=== PATIENT | female | born 1960 | race Caucasian/White ===

== ENCOUNTER 2021-10-11 13:54 | Inpatient (IN) | payer OTHER ==
[~2021-10-11] VITALS: Ht 167.6 cm; Wt 66.8 kg
[2021-10-11] MEDS ORDERED: ACET-683 PO (14:03)
[2021-10-11 16:07] LABS: BASO % 0.2 % (0.0-1.0); EOS # 0.1 10^3/uL (0.0-0.5); EOS % 0.4 % (0.0-3.0); HEMATOCRIT 39.2 % (36.0-47.0); HEMOGLOBIN 12.5 g/dl (12.0-15.5); LYMPH # 2.4 10^3/uL (1.5-5.0); LYMPH % 17.4 % (24.0-44.0); MEAN CORPUSCULAR HEMOGLOBIN 28.8 pg (27.0-33.0); MEAN CORPUSCULAR HGB CONC 31.9 g/dl (32.0-36.5); MEAN CORPUSCULAR VOLUME 90.3 fl (80.0-96.0); MONO % 11.6 % (2.0-8.0); NEUTROPHILS # 9.8 10^3/uL (1.5-8.5); PLATELET COUNT, AUTOMATED 341 10^3/uL (150-450); RED BLOOD COUNT 4.34 10^6/uL (4.00-5.40)
[2021-10-11 16:41] LABS: ALBUMIN 3.6 GM/DL (3.2-5.2); ALT/SGPT 60 U/L (12-78); BILIRUBIN,DIRECT 0.6 MG/DL (0.0-0.2); BLOOD UREA NITROGEN 13 MG/DL (7-18); CALCIUM LEVEL 9.6 MG/DL (8.8-10.2); CARBON DIOXIDE LEVEL 24 MEQ/L (21-32); CHLORIDE LEVEL 103 MEQ/L (98-107); CREATININE FOR GFR 0.95 MG/DL (0.55-1.30); GLOMERULAR FILTRATION RATE > 60.0 (>45); GLUCOSE, FASTING 89 MG/DL (70-100); LIPASE 76 U/L (73-393); POTASSIUM SERUM 3.7 MEQ/L (3.5-5.1); SODIUM LEVEL 135 MEQ/L (136-145); TOTAL PROTEIN 7.2 GM/DL (6.4-8.2)
[2021-10-11 16:51] LABS: MONO # 1.6 10^3/uL (0.0-0.8)
[2021-10-11] MEDS ORDERED: ISOVUE-370 76% 100ML VIAL As Ordered ONE (17:17)
[2021-10-11] MEDS ORDERED: ceFAZolin SOD 1 GM in D5W MINI-BAG PLUS 50 ML IV ONE (18:10)
[2021-10-11] MEDS ORDERED: KETOROLAC 30 MG/ML 1ML VIAL IV ONE (18:30)
[2021-10-11] MEDS ORDERED: metroNIDAZOLE 500 MG in IV 1 EA IV ONE (18:30)
[2021-10-11] MEDS ORDERED: ACETAMINOPHEN TAB 650MG DOSE (2X325MG) PO PRN (20:00)
[2021-10-11] MEDS ORDERED: ONDANSETRON 4MG 2ML VIAL IV PRN (20:00)
[2021-10-11] MEDS: D5W/0.45% SODIUM CHLORIDE 1,000 ML IV SCH (20:00)
[2021-10-11] MEDS ORDERED: MORPHINE 2 MG/ML 1ML VIAL IV PRN (20:00)
[2021-10-11] MEDS ORDERED: THERTAB52 PO (20:08)
[2021-10-11] MEDS ORDERED: HOME MED LIST COMPLETE! XX SCH (20:10)
[2021-10-11 22:12] VITALS: BP 145/61
[2021-10-11] MEDS: PIPERACILLIN/TAZOBACTAM SOD 3.375 GM in D5W MINI-BAG PLUS 50 ML IV SCH (22:49)
[2021-10-12] MEDS: KETOROLAC 30 MG/ML 1ML VIAL IV PRN ×2 (00:50→09:39)
[2021-10-12 02:00] VITALS: BP 104/63
[2021-10-12] MEDS: PIPERACILLIN/TAZOBACTAM SOD 3.375 GM in D5W MINI-BAG PLUS 50 ML IV SCH ×4 (04:11→21:56)
[2021-10-12 06:00] VITALS: BP_SYST 110; BP_SYST 89; BP_DIAS 47; BP_DIAS 62
[2021-10-12 08:45] LABS: BASO % 0.3 % (0.0-1.0); EOS # 0.1 10^3/uL (0.0-0.5); EOS % 0.7 % (0.0-3.0); HEMATOCRIT 36.4 % (36.0-47.0); HEMOGLOBIN 11.9 g/dl (12.0-15.5); LYMPH # 1.7 10^3/uL (1.5-5.0); LYMPH % 14.2 % (24.0-44.0); MEAN CORPUSCULAR HEMOGLOBIN 29.5 pg (27.0-33.0); MEAN CORPUSCULAR HGB CONC 32.7 g/dl (32.0-36.5); MEAN CORPUSCULAR VOLUME 90.1 fl (80.0-96.0); MONO # 1.3 10^3/uL (0.0-0.8); MONO % 10.8 % (2.0-8.0); NEUTROPHILS # 8.9 10^3/uL (1.5-8.5); NEUTROPHILS % 73.4 % (36.0-66.0); PLATELET COUNT, AUTOMATED 333 10^3/uL (150-450); RED BLOOD COUNT 4.04 10^6/uL (4.00-5.40); WHITE BLOOD COUNT 12.1 10^3/uL (4.0-10.0)
[2021-10-12] MEDS: D5W/0.45% SODIUM CHLORIDE 1,000 ML IV SCH (09:39)
[2021-10-12 10:00] VITALS: BP 99/54
[2021-10-12 14:00] VITALS: BP 122/63
[2021-10-12 18:00] VITALS: BP 125/67
[2021-10-12 20:59] VITALS: BP 128/66
[2021-10-13 01:47] VITALS: BP 102/54
[2021-10-13] MEDS: PIPERACILLIN/TAZOBACTAM SOD 3.375 GM in D5W MINI-BAG PLUS 50 ML IV SCH ×3 (04:37→15:41)
[2021-10-13 05:40] VITALS: BP 114/62
[2021-10-13 05:54] LABS: BASO % 0.3 % (0.0-1.0); EOS # 0.2 10^3/uL (0.0-0.5); EOS % 2.7 % (0.0-3.0); HEMATOCRIT 33.8 % (36.0-47.0); HEMOGLOBIN 10.7 g/dl (12.0-15.5); LYMPH # 2.5 10^3/uL (1.5-5.0); LYMPH % 31.5 % (24.0-44.0); MEAN CORPUSCULAR HEMOGLOBIN 28.4 pg (27.0-33.0); MEAN CORPUSCULAR HGB CONC 31.7 g/dl (32.0-36.5); MEAN CORPUSCULAR VOLUME 89.7 fl (80.0-96.0); MONO # 0.9 10^3/uL (0.0-0.8); MONO % 11.7 % (2.0-8.0); NEUTROPHILS # 4.2 10^3/uL (1.5-8.5); NEUTROPHILS % 53.2 % (36.0-66.0); PLATELET COUNT, AUTOMATED 312 10^3/uL (150-450); RED BLOOD COUNT 3.77 10^6/uL (4.00-5.40); WHITE BLOOD COUNT 7.8 10^3/uL (4.0-10.0)
[2021-10-13 10:00] VITALS: BP 126/76
[2021-10-13 14:00] VITALS: BP 128/75
[2021-10-13] MEDS ORDERED: METR-265 PO (17:13)
[2021-10-13] MEDS ORDERED: CIPR-249 PO (17:13)
== END 2021-10-13 17:45 | disposition home or self-care (01) | DRG 392 ==
LOC: M ED 13:54 → M ED INP 19:58 → ENRESERV 21:51 → M MS5PR 22:11
PROVIDERS: ADMIT Surgery; ATTEND Surgery
DX: K57.20 Diverticulitis of large intestine with perforation and abscess without bleeding (principal); Z20.822 Contact with and (suspected) exposure to COVID-19